=== PATIENT | female | born 1995 | race Caucasian/White ===

== ENCOUNTER 2017-05-29 21:08 | Emergency (ER) | payer OTHER ==
[~2017-05-29] VITALS: Ht 157.5 cm; Wt 72.6 kg
[~2017-05-29 21:08] MED LIST: ACEBUTCAFT PO; ALBU.083IS IH; ALBU3IS INH; ALBU90OI INH; ALBU90OI6; ALBU90OI6 INH; ALBU90OI61 INH; AZIT200SU; AZIT200SU PO; BUTASPCAF PO; Benadryl 50 mg50 MG PO; CETI5; CLARITIN10 MG PO; CYCL10 PO; Cleocin HCl300 MG PO; DIPH50; DIPH50 PO; Duoneb 2.5-0.5 M3 ML INH; EPIN.3I; EPIN.3I IM; ERYT.5TO OS; ESCI10; ESCI10 PO; FAMO20; FAMO20 PO; FAMO40 PO; FIORICET 50-301 EACH PO; FLUSAL2505 IH; FLUT.05NI; GABA100 PO; HYDACE5 PO; HYDPAM25 PO; HYDPAM50 PO; HYDR1TAB94 PO; IBUP600 PO; IBUP800 PO; LACT10SY PO; LORA10 PO; LORA10ER PO; MECL12.5 PO; MECL25 PO; METPRE4DP PO; MONT10T PO; MONT5TCH; MULTCH; Mirena1 EACH VG; Multiple Vitam1 EAC1 PO; NAPR500 PO; Naprosyn500 MG PO; Norco 5-325 Ta1 EACH PO; OMEP10ER; ORTHO-CYCLEN 21 EACH PO; PRED10 PO; PRED20 PO; PROC10 PO; PROM12.5S PO; PROM25 PO; Pepcid20 MG PO; Pepcid40 MG PO; Percocet 5-3251 EACH PO; Prednisone20 MG PO; Promethazine12.5 M1 PO; RANI150 PO; Sprintec1 EACH PO; TRAZ50 PO; TRIA80TC TOP; VITAMIN B122500 MCG PO; Ventolin Soln3 ML INH; Vistaril25 MG PO; XYZAL5 MG PO; Zithromax250 MG PO; Zofran Odt4 MG SL; Zofran Odt8 MG SL; [UNRECOGNIZED DRUG - OTHER]
[2017-05-29 22:18] LABS: BASOPHILS ABSOLUTE AUTO 0.03 K/mm3 (0.00-0.23); BASOPHILS PERCENT AUTO 0 % (0-2); EOSINOPHILS ABSOLUTE AUTO 0.24 K/mm3 (0.00-0.68); EOSINOPHILS PERCENT AUTO 2 % (0-6); Hematocrit 38.8 % (33.0-51.0); Hemoglobin 12.3 g/dL (11.5-16.0); IMMATURE GRAN ABSOLUTE AUTO 0.03 K/mm3 (0.00-0.10); IMMATURE GRAN PERCENT AUTO 0 % (0-1); LYMPHOCYTES ABSOLUTE AUTO 3.63 K/mm3 (0.84-5.20); LYMPHOCYTES PERCENT AUTO 36 % (21-46); MONOCYTES ABSOLUTE AUTO 0.81 K/mm3 (0.16-1.47); MONOCYTES PERCENT AUTO 8 % (4-13); Mean Corpuscular HGB 25.7 pg (26.0-34.0); Mean Corpuscular HGB Conc 31.7 g/dL (31.5-36.5); Mean Corpuscular Volume 81 fL (80-100); Mean Platelet Volume 10.1 fL (9.1-12.4); NEUTROPHILS ABSOLUTE AUTO 5.48 K/mm3 (1.96-9.15); NEUTROPHILS PERCENT AUTO 54 % (41-73); Platelet Count 366 K/mm3 (150-400); RDW Coefficient Variation 14.8 % (11.7-14.2); Red Blood Cell Count 4.78 M/mm3 (3.80-5.20); White Blood Cell Count 10.22 K/mm3 (4.00-11.30)
[2017-05-29 22:41] LABS: Troponin I <0.015 ng/mL (0.000-0.040)
[2017-05-29 22:48] LABS: Alanine Aminotransfer (ALT/SGP 14 U/L (12-78); Albumin/Globulin Ratio 0.7 (0.8-1.8); Alk Phos 58 U/L (50-136); Anion Gap 7 mmol/L (6-16); Aspartate Aminotrans (AST/SGOT 14 U/L (12-37); Bilirubin, Total <0.1 mg/dL (0.1-1.0); Blood Urea Nitrogen 8 mg/dL (8-24); Bun/Creatinine Ratio 12.6 (12.0-20.0); CO2, Blood 24 mmol/L (21-32); Calcium, Blood 8.8 mg/dL (8.5-10.1); Chloride, Blood 111 mmol/L (98-108); Creatinine, Blood 0.63 mg/dL (0.40-1.00); Globulin, Blood 4.2 g/dL (2.2-4.0); Glomerular Filtration Rate >60 (60-); Glucose, Blood 106 mg/dL (70-99); Potassium, Blood 3.7 mmol/L (3.5-5.5); Sodium, Blood 142 mmol/L (136-145); Total Protein, Blood 7.2 g/dL (6.4-8.2)
[2017-05-29 23:07] LABS: Source, Urine Clean Catch
[2017-05-29 23:09] LABS: Bilirubin, Urine Neg (Neg); Blood, Urine Neg (Neg); Glucose Qualitative, Urine Neg (Neg); Ketones, Urine Neg (Neg); Leukocyte Esterase, Urine Neg (Neg); Nitrite, Urine Neg (Neg); Protein, Urine Neg (Neg); Specific Gravity, Urine 1.015 (1.003-1.022); Urobilinogen, Urine NORM (Normal)
[2017-05-29 23:19] LABS: Appearance, Urine Clear (Clear); Color, Urine Yellow (P-Yellow)
== END 2017-05-29 23:54 | disposition home or self-care (01) ==
LOC: ER 21:08
PROVIDERS: Emergency Medicine
DX: R07.89 Other chest pain (principal); J45.909 Unspecified asthma, uncomplicated; Z88.0 Allergy status to penicillin; Z88.1 Allergy status to other antibiotic agents; Z88.5 Allergy status to narcotic agent; Z91.040 Latex allergy status; Z91.09 Other allergy status, other than to drugs and biological substances; Z79.899 Other long term (current) drug therapy
CPT/HCPCS: 36415; 71046; 80053; 81003; 81025; 84484; 85025; 93005; 93010; 99283

== ENCOUNTER 2017-08-22 06:20 | Emergency (ER) | payer OTHER ==
[~2017-08-22] VITALS: Ht 157.5 cm; Wt 72.6 kg
[2017-08-22] MEDS ORDERED: IBUP600 PO (07:04)
== END 2017-08-22 07:25 | disposition home or self-care (01) ==
LOC: ER 06:20
DX: S20.212A Contusion of left front wall of thorax, initial encounter (principal); W22.8XXA Striking against or struck by other objects, initial encounter; Z88.8 Allergy status to other drugs, medicaments and biological substances; Z88.0 Allergy status to penicillin; Z88.1 Allergy status to other antibiotic agents; Z91.040 Latex allergy status; J45.909 Unspecified asthma, uncomplicated
CPT/HCPCS: 71101; 99283

== ENCOUNTER 2017-09-27 00:46 | Emergency (ER) | payer OTHER ==
[~2017-09-27] VITALS: Ht 162.6 cm; Wt 74.8 kg
[2017-09-27] MEDS ORDERED: TRAZ50 PO (00:58)
[2017-09-27] MEDS ORDERED: GABA100 PO (00:58)
[2017-09-27] MEDS ORDERED: FLONASE ALLERG9.9 ML NS (00:59)
[2017-09-27] MEDS ORDERED: Zofran Odt4 MG PO (02:42)
[2017-09-27] MEDS ORDERED: Motion Sickness25 M1 PO (02:42)
== END 2017-09-27 02:55 | disposition home or self-care (01) ==
LOC: ER 00:46
DX: R42 Dizziness and giddiness (principal); J45.909 Unspecified asthma, uncomplicated; Z88.8 Allergy status to other drugs, medicaments and biological substances; Z88.0 Allergy status to penicillin; Z88.1 Allergy status to other antibiotic agents; Z91.040 Latex allergy status; Z88.5 Allergy status to narcotic agent; Z79.899 Other long term (current) drug therapy
CPT/HCPCS: 81000; 81025; 99283

== ENCOUNTER → 2018-03-16 | Outpatient (CLI) | payer OTHER ==
[~2018-03-16] MED LIST changes: +FLONASE ALLERG9.9 ML NS; +Motion Sickness25 M1 PO; +Zofran Odt4 MG PO
== END | disposition home or self-care (01) ==
LOC: PLD 11:36 → LAB SHORT 11:36
DX: D36.11 Benign neoplasm of peripheral nerves and autonomic nervous system of face, head, and neck (principal); D36.17 Benign neoplasm of peripheral nerves and autonomic nervous system of trunk, unspecified
CPT/HCPCS: 88305

== ENCOUNTER 2018-06-13 01:23 | Emergency (ER) | payer OTHER ==
[~2018-06-13] VITALS: Ht 157.5 cm; Wt 77.2 kg
== END 2018-06-13 03:12 | disposition home or self-care (01) ==
LOC: ER 01:23
DX: T78.40XA Allergy, unspecified, initial encounter (principal); Z88.0 Allergy status to penicillin; Z88.1 Allergy status to other antibiotic agents; Z88.8 Allergy status to other drugs, medicaments and biological substances; Z88.5 Allergy status to narcotic agent; Z88.7 Allergy status to serum and vaccine
CPT/HCPCS: 36415; 96361; 96374; 96375; 99284-25; J2930; J7030

== ENCOUNTER 2019-01-05 07:07 | Day surgery (SDC) | payer OTHER ==
[~2019-01-05] VITALS: Ht 157.5 cm; Wt 78.8 kg
[~2019-01-05 07:07] MED LIST changes: +EPIPEN 2-P0.3 MG/0.3 IM; +Flonase 0.05% N16 GM; +IRON236 MG PO; +ORTHO TRI-CYCL1 EACH PO; +VITAMIN D-32000 UNIT PO
--- NOTE | 2019-01-05 08:27 | NUR ---
01/05/19 0826 Simeon Bueno ASSISTING PT TO RESTROOM.
--- NOTE | 2019-01-05 09:51 | NUR ---
01/05/19 0951 Anuradha Ferguson PT GIVEN DUONEB IN PAR PER DR HOGUE.
== END 2019-01-05 10:44 | disposition home or self-care (01) ==
LOC: ORSCSDS 07:07
PROVIDERS: Podiatrist Foot & Ankle Surgery
PROC: 0MQQ0ZZ Repair Right Ankle Bursa and Ligament, Open Approach (ICD-10-PCS; principal; 2019-01-05 08:15)
PROC: 0SBF4ZZ Excision of Right Ankle Joint, Percutaneous Endoscopic Approach (ICD-10-PCS; principal; 2019-01-05 08:15)
DX: M25.371 Other instability, right ankle (principal); M65.9 Synovitis and tenosynovitis, unspecified; J45.909 Unspecified asthma, uncomplicated; K21.9 Gastro-esophageal reflux disease without esophagitis; Z79.899 Other long term (current) drug therapy
CPT/HCPCS: C1713; J0171; J1100; J2250; J2370; J2405; J2704; J2765; J3010; J3370; J7120

== ENCOUNTER 2019-06-27 00:32 | Observation (INO) | payer OTHER ==
[~2019-06-27] VITALS: Ht 157.5 cm; Wt 75.0 kg
[2019-06-27 01:10] LABS: PCO2 Arterial 33.3 mmHg (35-45); pH Blood Arterial 7.45 (7.35-7.45)
[2019-06-27 01:27] LABS: BASOPHILS ABSOLUTE AUTO 0.04 K/mm3 (0.00-0.23); BASOPHILS PERCENT AUTO 0 % (0-2); EOSINOPHILS ABSOLUTE AUTO 0.11 K/mm3 (0.00-0.68); EOSINOPHILS PERCENT AUTO 1 % (0-6); Hematocrit 39.7 % (33.0-51.0); Hemoglobin 12.8 g/dL (11.5-16.0); IMMATURE GRAN ABSOLUTE AUTO 0.05 K/mm3 (0.00-0.10); IMMATURE GRAN PERCENT AUTO 0 % (0-1); LYMPHOCYTES ABSOLUTE AUTO 3.31 K/mm3 (0.84-5.20); LYMPHOCYTES PERCENT AUTO 25 % (21-46); MONOCYTES ABSOLUTE AUTO 1.05 K/mm3 (0.16-1.47); MONOCYTES PERCENT AUTO 8 % (4-13); Mean Corpuscular HGB 26.4 pg (26.0-34.0); Mean Corpuscular HGB Conc 32.2 g/dL (31.5-36.5); Mean Corpuscular Volume 82 fL (80-100); Mean Platelet Volume 10.3 fL (9.1-12.4); NEUTROPHILS ABSOLUTE AUTO 8.68 K/mm3 (1.96-9.15); NEUTROPHILS PERCENT AUTO 66 % (41-73); Platelet Count 337 K/mm3 (150-400); RDW Coefficient Variation 13.6 % (11.7-14.2); Red Blood Cell Count 4.84 M/mm3 (3.80-5.20); White Blood Cell Count 13.24 K/mm3 (4.00-11.30)
[2019-06-27 01:48] LABS: Alanine Aminotransfer (ALT/SGP 22 U/L (12-78); Albumin, Blood 3.3 g/dL (3.4-5.0); Alk Phos 59 U/L (50-136); Anion Gap 8 mmol/L (6-16); Aspartate Aminotrans (AST/SGOT 17 U/L (12-37); Bilirubin, Total <0.1 mg/dL (0.1-1.0); Blood Urea Nitrogen 7 mg/dL (8-24); Bun/Creatinine Ratio 10.2 (12.0-20.0); CO2, Blood 24 mmol/L (21-32); Calcium, Blood 8.6 mg/dL (8.5-10.1); Chloride, Blood 110 mmol/L (98-108); Creatinine, Blood 0.68 mg/dL (0.40-1.00); Globulin, Blood 3.4 g/dL (2.2-4.0); Glomerular Filtration Rate >60 (60-); Glucose, Blood 103 mg/dL (70-99); Potassium, Blood 3.3 mmol/L (3.5-5.5); Sodium, Blood 142 mmol/L (136-145); Total Protein, Blood 6.7 g/dL (6.4-8.2); Troponin I <0.015 ng/mL (0.000-0.040)
[2019-06-27] MEDS ORDERED: Loratadine10 MG PO (03:30)
[2019-06-27 05:11] LABS: Hematocrit 36.6 % (33.0-51.0); Hemoglobin 11.7 g/dL (11.5-16.0); Mean Corpuscular HGB 26.3 pg (26.0-34.0); Mean Corpuscular Volume 82 fL (80-100); Mean Platelet Volume 10.5 fL (9.1-12.4); Platelet Count 323 K/mm3 (150-400); RDW Coefficient Variation 13.7 % (11.7-14.2); Red Blood Cell Count 4.45 M/mm3 (3.80-5.20); White Blood Cell Count 13.07 K/mm3 (4.00-11.30)
--- NOTE | 2019-06-27 05:20 | NUR ---
06/27/19 0515 Pt c/o dizziness and nausea after returning from bathroom for voiding. HEART MONITOR SHOWED SINUS TACHY AT 102 BUT RETURNED TO SR AT 96 AFTER SHE RESTED. MEDICATED FOR NAUSEA PER MAY. SIPPING ON SODA AFTERWARDS. O2 AT 2LPM VIA N/C SINCE ARRIVING FROM ER.
[2019-06-27 05:53] LABS: Alanine Aminotransfer (ALT/SGP 18 U/L (12-78); Albumin, Blood 2.8 g/dL (3.4-5.0); Albumin/Globulin Ratio 0.9 (0.8-1.8); Alk Phos 52 U/L (50-136); Anion Gap 7 mmol/L (6-16); Aspartate Aminotrans (AST/SGOT 14 U/L (12-37); Bilirubin, Total <0.1 mg/dL (0.1-1.0); Blood Urea Nitrogen 7 mg/dL (8-24); Bun/Creatinine Ratio 11.4 (12.0-20.0); CO2, Blood 23 mmol/L (21-32); Calcium, Blood 8.4 mg/dL (8.5-10.1); Chloride, Blood 112 mmol/L (98-108); Creatinine, Blood 0.61 mg/dL (0.40-1.00); Globulin, Blood 3.1 g/dL (2.2-4.0); Glomerular Filtration Rate >60 (60-); Glucose, Blood 119 mg/dL (70-99); Potassium, Blood 3.3 mmol/L (3.5-5.5); Sodium, Blood 142 mmol/L (136-145); Total Protein, Blood 5.9 g/dL (6.4-8.2)
--- NOTE | 2019-06-27 16:13 | NUR ---
PT IS A/OX3, PLEASANT AND COPERATIVE, THE PT IS UP IND IN HER ROOM, THE PT REPORTED A DAWKINS THIS AM, HOWEVER, HAS RESOLVED AT THIS TIME, THE PT DENIES ANY OTHER PAIN AT THIS TIME, THE PT APPEARS TO BE BREATHING EASILY ON 02 @ 2L/MIN, CALL LIGHT IN REACH WILL CONTINUE TO MONITOR AND ASSESS FOR CHANGES
[2019-06-27 16:59] LABS: Source, Urine Clean Catch
[2019-06-27 17:04] LABS: Bilirubin, Urine Neg (Neg); Blood, Urine Neg (Neg); Glucose Qualitative, Urine Neg (Neg); Ketones, Urine Neg (Neg); Leukocyte Esterase, Urine Neg (Neg); Nitrite, Urine Neg (Neg); Protein, Urine Neg (Neg); Urobilinogen, Urine NORM (Normal)
[2019-06-27 17:15] LABS: Appearance, Urine Clear (Clear); Color, Urine Pale Yellow (P-Yellow)
--- NOTE | 2019-06-28 03:23 | NUR ---
SHIFT SUMMARY ASSUMED CARE PF PT AT 1900. PT IS A/OX4, DENIES N/T IN EXTREMITIES. HEART SOUNDS REGULAR, TELE SHOWS SINUS @ 83, DENIES CP AT THIS TIME. LUNG SOUNDS HAVE FINE CRACKLES T/O, PT IS CURRENTLY ON 2L NC, DENIES SOB AT THIS TIME. PT STATES THAT SHE IS READY TO GO HOME TOMORROW BECAUSE SHE HAS TO GET BACK TO WORK AND WANTS TO SEE HER BOYFRIEND. NO ACUTE EVENTS DURING THE NIGHT, PT SLEPT T/O THE NIGHT. CALL LIGHT IN REACH, BED IN LOWEST POSITION, WILL CONTINUE TO MONITOR UNTIL DAYSHIFT NURSE ARRIVES.
[2019-06-28 04:18] LABS: BASOPHILS ABSOLUTE AUTO 0.04 K/mm3 (0.00-0.23); BASOPHILS PERCENT AUTO 0 % (0-2); EOSINOPHILS ABSOLUTE AUTO 0.17 K/mm3 (0.00-0.68); EOSINOPHILS PERCENT AUTO 2 % (0-6); Hematocrit 41.3 % (33.0-51.0); Hemoglobin 13.1 g/dL (11.5-16.0); IMMATURE GRAN ABSOLUTE AUTO 0.05 K/mm3 (0.00-0.10); IMMATURE GRAN PERCENT AUTO 1 % (0-1); LYMPHOCYTES ABSOLUTE AUTO 3.68 K/mm3 (0.84-5.20); LYMPHOCYTES PERCENT AUTO 34 % (21-46); MONOCYTES ABSOLUTE AUTO 0.95 K/mm3 (0.16-1.47); MONOCYTES PERCENT AUTO 9 % (4-13); Mean Corpuscular HGB 25.9 pg (26.0-34.0); Mean Corpuscular HGB Conc 31.7 g/dL (31.5-36.5); Mean Corpuscular Volume 82 fL (80-100); Mean Platelet Volume 10.1 fL (9.1-12.4); NEUTROPHILS PERCENT AUTO 55 % (41-73); Platelet Count 318 K/mm3 (150-400); RDW Coefficient Variation 13.9 % (11.7-14.2); RDW Standard Deviation 40.6 fL (35.1-46.3); Red Blood Cell Count 5.05 M/mm3 (3.80-5.20); White Blood Cell Count 10.89 K/mm3 (4.00-11.30)
[2019-06-28 04:41] LABS: PCO2 Arterial 40 mmHg (35-45); PO2 Arterial 116 mmHg (80-100)
[2019-06-28 04:41] LABS: Anion Gap 6 mmol/L (6-16); Blood Urea Nitrogen 5 mg/dL (8-24); Bun/Creatinine Ratio 7.3 (12.0-20.0); CO2, Blood 25 mmol/L (21-32); Calcium, Blood 8.4 mg/dL (8.5-10.1); Chloride, Blood 110 mmol/L (98-108); Creatinine, Blood 0.68 mg/dL (0.40-1.00); Glomerular Filtration Rate >60 (60-); Glucose, Blood 91 mg/dL (70-99); Potassium, Blood 3.9 mmol/L (3.5-5.5); Sodium, Blood 141 mmol/L (136-145)
[2019-06-28] MEDS ORDERED: ONDA4ODT MM (09:54)
[2019-06-28] MEDS ORDERED: ACET325 PO (09:54)
--- NOTE | 2019-06-28 15:11 | NUR ---
DISCHARGED TO HOME AT 1305 WITH BELONGINGS AND INSTRUCTIONS. NO COMPLAINTS.
== END 2019-06-28 13:08 | disposition home or self-care (01) ==
LOC: ER 00:32 → MEDS 00:33 → ENPENDDIS 06-28 11:42 → MEDS 06-28 13:08
PROVIDERS: Family Medicine; Physician Assistant; ADMIT Internal Medicine
DX: T58.11XA Toxic effect of carbon monoxide from utility gas, accidental (unintentional), initial encounter (principal); E87.6 Hypokalemia; R41.82 Altered mental status, unspecified; R11.0 Nausea; D72.829 Elevated white blood cell count, unspecified; J45.909 Unspecified asthma, uncomplicated; L40.9 Psoriasis, unspecified; L30.9 Dermatitis, unspecified; Q85.00 Neurofibromatosis, unspecified; F17.210 Nicotine dependence, cigarettes, uncomplicated; Y92.009 Unspecified place in unspecified non-institutional (private) residence as the place of occurrence of the external cause; Z79.51 Long term (current) use of inhaled steroids; Z79.899 Other long term (current) drug therapy; Z88.0 Allergy status to penicillin; Z88.1 Allergy status to other antibiotic agents; Z88.5 Allergy status to narcotic agent; Z88.7 Allergy status to serum and vaccine; Z88.8 Allergy status to other drugs, medicaments and biological substances; Z91.040 Latex allergy status; Z91.048 Other nonmedicinal substance allergy status
CPT/HCPCS: 36415; 36600; 71045; 80048; 80053; 81003; 82375; 82803; 84145; 84484; 85025; 85027; 93005; 93010; 96361; 96372; 96374; 96375; 96376; 99285-25; A9270; G0378; J1650; J2060; J2405; J7030

== ENCOUNTER 2020-09-09 20:49 | Emergency (ER) | payer OTHER ==
[~2020-09-09] VITALS: Ht 157.5 cm; Wt 77.1 kg
[~2020-09-09 20:49] MED LIST changes: +ACET325 PO; +Loratadine10 MG PO; +ONDA4ODT MM
[2020-09-09 21:25] LABS: BASOPHILS ABSOLUTE AUTO 0.04 K/mm3 (0.00-0.23); BASOPHILS PERCENT AUTO 0 % (0-2); EOSINOPHILS ABSOLUTE AUTO 0.21 K/mm3 (0.00-0.68); EOSINOPHILS PERCENT AUTO 2 % (0-6); Hematocrit 38.7 % (33.0-51.0); Hemoglobin 12.2 g/dL (11.5-16.0); Mean Corpuscular HGB 23.6 pg (26.0-34.0); Mean Corpuscular HGB Conc 31.5 g/dL (31.5-36.5); Mean Corpuscular Volume 75 fL (80-100); Mean Platelet Volume 10.3 fL (9.1-12.4); Platelet Count 434 K/mm3 (150-400); RDW Coefficient Variation 14.6 % (11.7-14.2); RDW Standard Deviation 39.5 fL (35.1-46.3); Red Blood Cell Count 5.17 M/mm3 (3.80-5.20); White Blood Cell Count 13.31 K/mm3 (4.00-11.30)
[2020-09-09 21:26] LABS: IMMATURE GRAN ABSOLUTE AUTO 0.05 K/mm3 (0.00-0.10); IMMATURE GRAN PERCENT AUTO 0 % (0-1); LYMPHOCYTES ABSOLUTE AUTO 4.26 K/mm3 (0.84-5.20); LYMPHOCYTES PERCENT AUTO 32 % (21-46); MONOCYTES PERCENT AUTO 7 % (4-13); NEUTROPHILS ABSOLUTE AUTO 7.85 K/mm3 (1.96-9.15); NEUTROPHILS PERCENT AUTO 59 % (41-73)
[2020-09-09 22:02] LABS: Alanine Aminotransfer (ALT/SGP 63 U/L (12-78); Albumin, Blood 3.5 g/dL (3.4-5.0); Albumin/Globulin Ratio 0.8 (0.8-1.8); Alk Phos 78 U/L (50-136); Anion Gap 6 mmol/L (6-16); Aspartate Aminotrans (AST/SGOT 35 U/L (12-37); Bilirubin, Total 0.1 mg/dL (0.1-1.0); Blood Urea Nitrogen 14 mg/dL (8-24); Bun/Creatinine Ratio 21.2 (12.0-20.0); CO2, Blood 24 mmol/L (21-32); CPK Creatine Kinase 48 U/L (26-193); Chloride, Blood 108 mmol/L (98-108); Creatine Kinase MB <1.0 ng/mL (0.0-3.6); Creatine Kinase MB Index Unable to Calculate (0.0-4.0); Creatinine, Blood 0.66 mg/dL (0.40-1.00); Globulin, Blood 4.3 g/dL (2.2-4.0); Glomerular Filtration Rate >60 (60-); Glucose, Blood 114 mg/dL (70-99); Potassium, Blood 4.1 mmol/L (3.5-5.5); Sodium, Blood 138 mmol/L (136-145); Total Protein, Blood 7.8 g/dL (6.4-8.2)
[2020-09-09 23:21] LABS: Source, Urine Clean Catch
[2020-09-09 23:31] LABS: Bilirubin, Urine Neg (Neg); Blood, Urine Neg (Neg); Glucose Qualitative, Urine Neg (Neg); Ketones, Urine Neg (Neg); Leukocyte Esterase, Urine Neg (Neg); Nitrite, Urine Neg (Neg); Protein, Urine Neg (Neg); Specific Gravity, Urine 1.025 (1.003-1.022); Urobilinogen, Urine NORM (Normal)
[2020-09-09 23:37] LABS: Appearance, Urine Clear (Clear); Color, Urine Yellow (P-Yellow)
[2020-09-10 00:47] LABS: Troponin I <0.015 ng/mL (0.000-0.040)
== END 2020-09-10 02:00 | disposition home or self-care (01) ==
LOC: ER 20:49
PROVIDERS: Physician Assistant
DX: T75.4XXA Electrocution, initial encounter (principal); R20.2 Paresthesia of skin; R07.89 Other chest pain; F17.210 Nicotine dependence, cigarettes, uncomplicated; Z88.0 Allergy status to penicillin; Z88.1 Allergy status to other antibiotic agents; Z88.7 Allergy status to serum and vaccine; Z91.040 Latex allergy status; Z88.5 Allergy status to narcotic agent; W86.0XXA Exposure to domestic wiring and appliances, initial encounter; Y92.009 Unspecified place in unspecified non-institutional (private) residence as the place of occurrence of the external cause
CPT/HCPCS: 36415; 80053; 81003; 82550; 82553; 84484; 85025; 93005; 93010; 99283-25

== ENCOUNTER 2021-07-30 22:54 | Emergency (ER) | payer OTHER ==
[~2021-07-30] VITALS: Ht 157.5 cm; Wt 80.7 kg
[2021-07-30] MEDS ORDERED: ZOLOFT50 MG PO (23:17)
[2021-07-30] MEDS ORDERED: IBUP600 PO (23:18)
[2021-07-30] MEDS ORDERED: Prednisone20 MG PO (23:40)
== END 2021-07-31 00:10 | disposition home or self-care (01) ==
LOC: ER 22:54
DX: T78.40XA Allergy, unspecified, initial encounter (principal); J45.909 Unspecified asthma, uncomplicated; X58.XXXA Exposure to other specified factors, initial encounter; Y92.9 Unspecified place or not applicable; Z88.1 Allergy status to other antibiotic agents; Z91.040 Latex allergy status; Z88.5 Allergy status to narcotic agent; Z88.0 Allergy status to penicillin; Z88.7 Allergy status to serum and vaccine; Z88.8 Allergy status to other drugs, medicaments and biological substances; Z91.09 Other allergy status, other than to drugs and biological substances; Z79.899 Other long term (current) drug therapy
CPT/HCPCS: 99283; J7512

== ENCOUNTER 2022-11-28 10:08 | Emergency (ER) | payer OTHER ==
[~2022-11-28] VITALS: Ht 157.5 cm; Wt 81.7 kg
[~2022-11-28 10:08] MED LIST changes: +ZOLOFT50 MG PO
[2022-11-28 10:33] VITALS: BP 139/84
[2022-11-28] MEDS ORDERED: LORA10ER (11:12)
== END 2022-11-28 12:10 | disposition home or self-care (01) ==
LOC: ER 10:08
DX: S56.812A Strain of other muscles, fascia and tendons at forearm level, left arm, initial encounter (principal); J45.909 Unspecified asthma, uncomplicated; Z88.8 Allergy status to other drugs, medicaments and biological substances; Z88.0 Allergy status to penicillin; Z88.1 Allergy status to other antibiotic agents; Z91.040 Latex allergy status; Z88.5 Allergy status to narcotic agent; Z88.7 Allergy status to serum and vaccine; Z91.048 Other nonmedicinal substance allergy status; Z79.52 Long term (current) use of systemic steroids; Z79.899 Other long term (current) drug therapy; X58.XXXA Exposure to other specified factors, initial encounter
CPT/HCPCS: 73080; 99283-25

== ENCOUNTER 2025-03-18 20:12 | Emergency (ER) | payer OTHER ==
[~2025-03-18] VITALS: Ht 157.5 cm; Wt 84.8 kg
[~2025-03-18 20:12] MED LIST changes: +LORA10ER
[2025-03-18 20:16] VITALS: BP 140/86
[2025-03-18] MEDS ORDERED: Ketorolac Tromethamine 15mg Vial IM ONE (20:50)
== END 2025-03-18 23:22 | disposition home or self-care (01) ==
LOC: ER 20:12
DX: S00.83XA Contusion of other part of head, initial encounter (principal); W50.0XXA Accidental hit or strike by another person, initial encounter
CPT/HCPCS: 70110; 96372; 99283-25; J1885